=== PATIENT | female | born 1955 | race Caucasian/White ===

== ENCOUNTER 2018-12-01 12:39 | Inpatient (IN) | payer OTHER ==
[2018-12-01] MEDS ORDERED: SODIUM CHLORIDE 0.9% 1,000 ML IV STA ×2 (13:16→15:25)
[2018-12-01] MEDS ORDERED: methylPREDNISolone SOD SUCCI 125 MG/2 ML VIAL IV STA (13:16)
[2018-12-01] MEDS ORDERED: IPRATROPIUM-ALBUTEROL 3 ML NEB INHALATION STA ×2 (13:16→14:17)
[2018-12-01] MEDS ORDERED: ASPIRIN 81 MG PO STA (13:18)
[2018-12-01] MEDS ORDERED: MORPHINE SULFATE 4 MG/ML SYRINGE IV STA (13:19)
--- NOTE | 2018-12-01 13:48 | XR ---
EXAMINATION TYPE: XR chest 1V portable DATE OF EXAM: 12/01/2018 COMPARISON: 01/24/2018 HISTORY: Chest pain TECHNIQUE: Single frontal view of the chest is obtained. FINDINGS: There is chronic slight left hemidiaphragm elevation. Biapical lucency suggests a component of underlying COPD. There is no focal air space opacity, pleural effusion, or pneumothorax seen. Th e cardiac silhouette size is within normal limits. The osseous structures are intact. IMPRESSION: No acute cardiopulmonary process.
[2018-12-01 14:09] LABS: Basophils % (A) 0 %; Eosinophils % (A) 1 %; HCT 42.4 % (34.0-46.0); HGB 13.2 gm/dL (11.4-16.0); Lymphocytes # (A) 0.6 k/uL (1.0-4.8); Lymphocytes % (A) 9 %; MCHC 31.2 g/dL (31.0-37.0); MCV 89.8 fL (80.0-100.0); Mean Platelet Volume 6.9; Monocytes # (A) 0.5 k/uL (0-1.0); Monocytes % (A) 8 %; Neutrophils # (A) 4.9 k/uL (1.3-7.7); Neutrophils % (A) 80 %; Platelet Count 186 k/uL (150-450); RBC 4.72 m/uL (3.80-5.40); RDW 13.6 % (11.5-15.5); WBC 6.1 k/uL (3.8-10.6)
[2018-12-01 14:25] LABS: ALT 31 U/L (9-52); AST 18 U/L (14-36); Albumin 4.3 g/dL (3.5-5.0); Alkaline Phosphatase 98 U/L (38-126); Anion Gap 7 mmol/L; Blood Urea Nitrogen 8 mg/dL (7-17); Calcium 9.5 mg/dL (8.4-10.2); Carbon Dioxide 29 mmol/L (22-30); Chloride 102 mmol/L (98-107); Glucose 107 mg/dL (74-99); Potassium 4.7 mmol/L (3.5-5.1); Sodium 138 mmol/L (137-145); Total Bilirubin 0.4 mg/dL (0.2-1.3); Total Protein 7.5 g/dL (6.3-8.2)
[2018-12-01 14:43] LABS: D-Dimer 0.42 mg/L FEU (<0.60); INR 0.9 (<1.2); Partial Thromboplastin Time 22.6 sec (22.0-30.0); Prothrombin Time 9.7 sec (9.0-12.0)
--- NOTE | 2018-12-01 14:46 | ED ---
General Adult HPI - General Chief complaint: Shortness of Breath Stated complaint: RANDEE Time Seen by Provider: 12/01/18 13:12 Source: patient, family, RN notes reviewed, old records reviewed Mode of arrival: wheelchair Limitations: no limitations - History of Present Illness Initial comments: 63-year-old female patient past medical history of COPD, on home oxygen 2 L. Presents to ED with shortness of breath, generalized pain. Patient reports that she has generalized pain in her upper body, however does not have any localized pain. Pt also complains of a cough that is at times productive. These symptoms have been ongoing for approximately 3 days. Patient denies abdominal pain. Patient denies any other complaints. Systemic: Pt denies fatigue, myalgia, fever/chills, rash. Pt denies weakness, night sweats, weight loss. Neuro: Pt denies headache, visual disturbances, syncope or pre-syncope. HEENT: Pt denies ocular discharge or irritation, otalgia, rhinorrhea, pharyngitis or notable lymphadenopathy. Abdominal/GI: Pt denies abdominal pain, n/v/d. : Pt denies dysuria, burning w/ urination, frequency/urgency. Denies new onset urinary or bowel incontinence. MSK: Pt denies myalgia, loss of strength or function in extremities. Neuro: Pt denies new onset weakness, paresthesias. - Related Data Home Medications Medication Instructions Recorded Confirmed Albuterol Nebulized (Conc) 2.5 mg INHALATION RT-QID 12/01/18 12/01/18 [Ventolin Nebulized (Conc)] Metoprolol Tartrate [Lopressor] 25 mg PO DAILY 12/01/18 12/01/18 Nitroglycerin Sl Tabs [Nitrostat] 0.4 mg SL DIRECTED 12/01/18 12/01/18 predniSONE 5 mg PO BID 12/01/18 12/01/18 rOPINIRole HCL 0.5 mg PO DAILY 12/01/18 12/01/18 Allergies Allergy/AdvReac Type Severity Reaction Status Date / Time latex Allergy Rash/Hives Verified 12/01/18 19:48 Penicillins Allergy Unknown Verified 12/01/18 15:02 Review of Systems ROS Statement: Those systems with pertinent positive or pertinent negative responses have been documented in the HPI. ROS Other: All systems not noted in ROS Statement are negative. Past Medical History Past Medical History: COPD, Hyperlipidemia Additional Past Medical History / Comment(s): emphesema History of Any Multi-Drug Resistant Organisms: None Reported Past Surgical History: Section, Hysterectomy Past Psychological History: No Psychological Hx Reported Smoking Status: Current every day smoker Past Alcohol Use History: Rare Past Drug Use History: None Reported - Past Family History Mother Additional Family Medical History / Comment(s): thyroid issues Father Family Medical History: Cancer, COPD Additional Family Medical History / Comment(s): colon cancer General Exam - General Exam Comments Initial Comments: Constitutional: NAD, AOX3, Pt has pleasant affect. HEENT: NC/AT, trachea midline, neck supple, no lymphadenopathy. Posterior pharynx non erythematous, without exudates. External ears appear normal, without discharge. Mucous membranes moist. Eyes PERRLA, EOM intact. There is no scleral icterus. No pallor noted. Cardiopulmonary: RRR, no murmurs, rubs or gallops, no JVD noted. Mild wheezing noted in anterior lung bustillo, resolved after breathing treatment mild labored breathing, no use of acessory muscles. No peripheral edema. Abdominal exam: Abdomen soft and non-distended. Abdomen non-tender to palpation in all 4 quadrants. Bowel sounds active in LLQ. No hepatosplenomegaly. No ecchymosis Neuro: CN II-XII grossly intact. No nuchal rigidity. MSK: No posterior calf tenderness bilaterally, homans sign negative bilaterally. Posterior tibialis and radial pulse +2 bilaterally. Sensation intact in upper and lower extremities. Full active ROM in upper and lower extremities, 5/5 stregnth. Limitations: no limitations Course Vital Signs 12/01/18 12/01/18 12/01/18 12:44 13:30 13:38 Temperature 98.8 F Pulse Rate 138 H 138 H 133 H Respiratory 28 H 28 H Rate Blood Pressure 94/36 158/90 O2 Sat by Pulse 96 95 Oximetry 12/01/18 12/01/18 12/01/18 13:50 14:00 15:00 Temperature Pulse Rate 125 H 121 H 118 H Respiratory 24 24 Rate Blood Pressure 133/63 128/63 O2 Sat by Pulse 97 96 Oximetry 12/01/18 12/01/18 12/01/18 15:15 15:23 15:30 Temperature Pulse Rate 116 H 112 H 120 H Respiratory 24 Rate Blood Pressure 113/72 O2 Sat by Pulse 94 L Oximetry 12/01/18 12/01/18 17:00 18:05 Temperature 98.0 F 97.9 F Pulse Rate 116 H 115 H Respiratory 20 20 Rate Blood Pressure 112/66 126/80 O2 Sat by Pulse 93 L 94 L Oximetry Medical Decision Making - Medical Decision Making 63-year-old female patient past medical history of COPD, on home oxygen 2 L. Presents to ED with shortness of breath, generalized pain. Patient reports that she has generalized pain in her upper body, however does not have any localized pain. Pt also complains of a cough that is at times productive. These symptoms have been ongoing for approximately 3 days. Patient denies abdominal pain. Patient denies any other complaints. Patient vital signs with tachycardia. Physical exam displayed mild wheezing in anterior lung bustillo. Resolved after breathing treatment. Patient does have mild labored breathing. O2 investigations are non-impressive CBC, CMP. Correlation studies within normal limits. D-dimer negative. Troponin negative. BNP within normal limits. TSH within normal limits. CT pulmonary angiography display any pulmonary embolism. It did display a anterior mediastinal mass. Patient retained to be mildly tachycardic during stay in hospital. Pt to be admitted for COPD exacerbation. Case discussed and pt seen by Dr. Aguiar. - Lab Data Result diagrams: 12/01/18 13:25 12/01/18 13:25 Lab Results 12/01/18 12/01/18 12/01/18 Range/Units 13:25 13:25 13:25 WBC 6.1 (3.8-10.6) k/uL RBC 4.72 (3.80-5.40) m/uL Hgb 13.2 (11.4-16.0) gm/dL Hct 42.4 (34.0-46.0) % MCV 89.8 (80.0-100.0) fL MCH 28.0 (25.0-35.0) pg MCHC 31.2 (31.0-37.0) g/dL RDW 13.6 (11.5-15.5) % Plt Count 186 (150-450) k/uL Neutrophils % 80 % Lymphocytes % 9 % Monocytes % 8 % Eosinophils % 1 % Basophils % 0 % Neutrophils # 4.9 (1.3-7.7) k/uL Lymphocytes # 0.6 L (1.0-4.8) k/uL Monocytes # 0.5 (0-1.0) k/uL Eosinophils # 0.0 (0-0.7) k/uL Basophils # 0.0 (0-0.2) k/uL PT 9.7 (9.0-12.0) sec INR 0.9 (<1.2) APTT 22.6 (22.0-30.0) sec D-Dimer 0.42 (<0.60) mg/L FEU Sodium 138 (137-145) mmol/L Potassium 4.7 (3.5-5.1) mmol/L Chloride 102 (98-107) mmol/L Carbon Dioxide 29 (22-30) mmol/L Anion Gap 7 mmol/L BUN 8 (7-17) mg/dL Creatinine 0.61 (0.52-1.04) mg/dL Est GFR (CKD-EPI)AfAm >90 (>60 ml/min/1.73 sqM) Est GFR (CKD-EPI)NonAf >90 (>60 ml/min/1.73 sqM) Glucose 107 H (74-99) mg/dL Calcium 9.5 (8.4-10.2) mg/dL Total Bilirubin 0.4 (0.2-1.3) mg/dL AST 18 (14-36) U/L ALT 31 (9-52) U/L Alkaline Phosphatase 98 (38-126) U/L Creatine Kinase (30-135) U/L Troponin I (0.000-0.034) ng/mL NT-Pro-B Natriuret Pep pg/mL Total Protein 7.5 (6.3-8.2) g/dL Albumin 4.3 (3.5-5.0) g/dL TSH (0.465-4.680) mIU/L 12/01/18 12/01/18 12/01/18 Range/Units 13:25 13:25 13:25 WBC (3.8-10.6) k/uL RBC (3.80-5.40) m/uL Hgb (11.4-16.0) gm/dL Hct (34.0-46.0) % MCV (80.0-100.0) fL MCH (25.0-35.0) pg MCHC (31.0-37.0) g/dL RDW (11.5-15.5) % Plt Count (150-450) k/uL Neutrophils % % Lymphocytes % % Monocytes % % Eosinophils % % Basophils % % Neutrophils # (1.3-7.7) k/uL Lymphocytes # (1.0-4.8) k/uL Monocytes # (0-1.0) k/uL Eosinophils # (0-0.7) k/uL Basophils # (0-0.2) k/uL PT (9.0-12.0) sec INR (<1.2) APTT (22.0-30.0) sec D-Dimer (<0.60) mg/L FEU Sodium (137-145) mmol/L Potassium (3.5-5.1) mmol/L Chloride (98-107) mmol/L Carbon Dioxide (22-30) mmol/L Anion Gap mmol/L BUN (7-17) mg/dL Creatinine (0.52-1.04) mg/dL Est GFR (CKD-EPI)AfAm (>60 ml/min/1.73 sqM) Est GFR (CKD-EPI)NonAf (>60 ml/min/1.73 sqM) Glucose (74-99) mg/dL Calcium (8.4-10.2) mg/dL Total Bilirubin (0.2-1.3) mg/dL AST (14-36) U/L ALT (9-52) U/L Alkaline Phosphatase (38-126) U/L Creatine Kinase 47 (30-135) U/L Troponin I <0.012 (0.000-0.034) ng/mL NT-Pro-B Natriuret Pep 116 pg/mL Total Protein (6.3-8.2) g/dL Albumin (3.5-5.0) g/dL TSH 0.996 (0.465-4.680) mIU/L Disposition Clinical Impression: COPD (chronic obstructive pulmonary disease) Disposition: ADMITTED IP TO THIS HOSP Condition: Serious Is patient prescribed a controlled substance at d/c from ED?: No
[2018-12-01] MEDS ORDERED: LORazepam 2 MG/ML INJ IV STA (15:02)
--- NOTE | 2018-12-01 15:10 | CT ---
EXAMINATION TYPE: CT chest angio for PE DATE OF EXAM: 12/01/2018 COMPARISON: Chest x-ray same date, CT 05/25/2010 HISTORY: Left sided chest pain with cough and shortness of breath CT DLP: 242.1 mGycm Automated exposure control for dose reduction was used. CONTRAST: CT Chest for pulmonary embolism performed with with IV Contrast, patient injected with 100 mL of Isov ue 370. FINDINGS: LUNGS: The lungs are remarkable for emphysematous change, there is no concerning parenchymal mass or nodule identified. There is no pleural effusion or pneumothorax seen. The tracheobronchial tree is patent. MEDIASTINUM: There is satisfactory enhancement of the pulmonary artery and its branches, there is no CT evidence for pulmonary embolism. There is been interval development of an anterior mediastinal mas s measuring approximately 4 x 3.3 x 3.4 cm anterior to the innominate and left common carotid arterie s in the substernal location to the left of midline. Suspect some right hilar adenopathy. There is a small prevascular node present. No pericardial effusion is seen. AORTA: No additional significant abnormality is seen. OTHER: No additional significant abnormality is seen. IMPRESSION: Anterior mediastinal mass. Correlate for lymphoma, metastasis.
[2018-12-01] MEDS ORDERED: NALOXONE 0.4 MG/ML 1 ML VIAL IV PRN (16:54)
[2018-12-01] MEDS ORDERED: SODIUM CHLORIDE 0.9% 1,000 ML IV SCH (17:00)
[2018-12-01 19:47] VITALS: BMI 22.9
--- NOTE | 2018-12-01 21:34 | ED ---
Medical Decision Making - Lab Data Result diagrams: 12/01/18 13:25 12/01/18 13:25 Lab Results 12/01/18 12/01/18 12/01/18 Range/Units 13:25 13:25 13:25 WBC 6.1 (3.8-10.6) k/uL RBC 4.72 (3.80-5.40) m/uL Hgb 13.2 (11.4-16.0) gm/dL Hct 42.4 (34.0-46.0) % MCV 89.8 (80.0-100.0) fL MCH 28.0 (25.0-35.0) pg MCHC 31.2 (31.0-37.0) g/dL RDW 13.6 (11.5-15.5) % Plt Count 186 (150-450) k/uL Neutrophils % 80 % Lymphocytes % 9 % Monocytes % 8 % Eosinophils % 1 % Basophils % 0 % Neutrophils # 4.9 (1.3-7.7) k/uL Lymphocytes # 0.6 L (1.0-4.8) k/uL Monocytes # 0.5 (0-1.0) k/uL Eosinophils # 0.0 (0-0.7) k/uL Basophils # 0.0 (0-0.2) k/uL PT 9.7 (9.0-12.0) sec INR 0.9 (<1.2) APTT 22.6 (22.0-30.0) sec D-Dimer 0.42 (<0.60) mg/L FEU Sodium 138 (137-145) mmol/L Potassium 4.7 (3.5-5.1) mmol/L Chloride 102 (98-107) mmol/L Carbon Dioxide 29 (22-30) mmol/L Anion Gap 7 mmol/L BUN 8 (7-17) mg/dL Creatinine 0.61 (0.52-1.04) mg/dL Est GFR (CKD-EPI)AfAm >90 (>60 ml/min/1.73 sqM) Est GFR (CKD-EPI)NonAf >90 (>60 ml/min/1.73 sqM) Glucose 107 H (74-99) mg/dL Calcium 9.5 (8.4-10.2) mg/dL Total Bilirubin 0.4 (0.2-1.3) mg/dL AST 18 (14-36) U/L ALT 31 (9-52) U/L Alkaline Phosphatase 98 (38-126) U/L Creatine Kinase (30-135) U/L Troponin I (0.000-0.034) ng/mL NT-Pro-B Natriuret Pep pg/mL Total Protein 7.5 (6.3-8.2) g/dL Albumin 4.3 (3.5-5.0) g/dL TSH (0.465-4.680) mIU/L 12/01/18 12/01/18 12/01/18 Range/Units 13:25 13:25 13:25 WBC (3.8-10.6) k/uL RBC (3.80-5.40) m/uL Hgb (11.4-16.0) gm/dL Hct (34.0-46.0) % MCV (80.0-100.0) fL MCH (25.0-35.0) pg MCHC (31.0-37.0) g/dL RDW (11.5-15.5) % Plt Count (150-450) k/uL Neutrophils % % Lymphocytes % % Monocytes % % Eosinophils % % Basophils % % Neutrophils # (1.3-7.7) k/uL Lymphocytes # (1.0-4.8) k/uL Monocytes # (0-1.0) k/uL Eosinophils # (0-0.7) k/uL Basophils # (0-0.2) k/uL PT (9.0-12.0) sec INR (<1.2) APTT (22.0-30.0) sec D-Dimer (<0.60) mg/L FEU Sodium (137-145) mmol/L Potassium (3.5-5.1) mmol/L Chloride (98-107) mmol/L Carbon Dioxide (22-30) mmol/L Anion Gap mmol/L BUN (7-17) mg/dL Creatinine (0.52-1.04) mg/dL Est GFR (CKD-EPI)AfAm (>60 ml/min/1.73 sqM) Est GFR (CKD-EPI)NonAf (>60 ml/min/1.73 sqM) Glucose (74-99) mg/dL Calcium (8.4-10.2) mg/dL Total Bilirubin (0.2-1.3) mg/dL AST (14-36) U/L ALT (9-52) U/L Alkaline Phosphatase (38-126) U/L Creatine Kinase 47 (30-135) U/L Troponin I <0.012 (0.000-0.034) ng/mL NT-Pro-B Natriuret Pep 116 pg/mL Total Protein (6.3-8.2) g/dL Albumin (3.5-5.0) g/dL TSH 0.996 (0.465-4.680) mIU/L - EKG Data -: EKG Interpreted by Me (and dr baum) EKG Comments: ventricular rate 1:30, WI interval 124, QRS 78, QT/QTc 94/432. Sinus tachycardia, low voltage QRS. Borderline EKG.no concern for acute ischemia. Disposition Clinical Impression: COPD (chronic obstructive pulmonary disease) Disposition: ADMITTED IP TO THIS HOSP Condition: Serious Is patient prescribed a controlled substance at d/c from ED?: No
[2018-12-01] MEDS ORDERED: IPRATROPIUM-ALBUTEROL 3 ML NEB INHALATION PRN (22:00)
[2018-12-01] MEDS ORDERED: CALCIUM CARBONATE 500 MG CHEWABLE PO PRN (22:01)
[2018-12-01] MEDS ORDERED: NITROGLYCERIN SL TABS 0.4 MG TAB SUBLINGUAL PRN (22:02)
[2018-12-01] MEDS ORDERED: MELATONIN 5 MG TABLET PO PRN (22:03)
[2018-12-01] MEDS: PANTOPRAZOLE 40 MG/10 ML VIAL IVP SCH (23:03)
[2018-12-01] MEDS: guaiFENesin 600 MG TABLET.ER PO SCH (23:03)
[2018-12-01] MEDS: methylPREDNISolone SOD SUCCI 125 MG/2 ML VIAL IV SCH (23:03)
[2018-12-01] MEDS: METOPROLOL TARTRATE 25 MG TAB PO SCH (23:03)
[2018-12-01] MEDS: ACETAMINOPHEN TAB 325 MG TAB PO PRN (23:05)
[2018-12-02] MEDS: IPRATROPIUM-ALBUTEROL 3 ML NEB INHALATION PRN (03:49)
[2018-12-02] MEDS: guaiFENesin SYRUP 100MG/5ML 200 MG/10 ML CUP PO PRN ×2 (05:03→17:20)
[2018-12-02] MEDS: methylPREDNISolone SOD SUCCI 125 MG/2 ML VIAL IV SCH ×2 (05:03→13:59)
[2018-12-02] MEDS: MORPHINE SULFATE 4 MG/ML SYRINGE IV PRN ×3 (05:16→23:48)
[2018-12-02 06:59] LABS: Glucose,Whole Blood 140 mg/dL (75-99)
[2018-12-02] MEDS: IPRATROPIUM-ALBUTEROL 3 ML NEB INHALATION SCH ×4 (08:11→20:39)
[2018-12-02] MEDS: METOPROLOL TARTRATE 25 MG TAB PO SCH (08:41)
[2018-12-02] MEDS: guaiFENesin 600 MG TABLET.ER PO SCH ×2 (08:41→20:56)
[2018-12-02] MEDS: PANTOPRAZOLE 40 MG/10 ML VIAL IVP SCH (08:41)
[2018-12-02] MEDS: INSULIN ASPART (NovoLOG) 100 UNIT/ML VIAL SQ SCH ×4 (08:42→20:50)
--- NOTE | 2018-12-02 10:30 | P.CNPUL ---
History of Present Illness Consult date: 12/02/18 Requesting physician: Andre Cannon Reason for consult: abnormal CXR/CT Chief complaint: Bilateral shoulder pain, shortness of breath History of present illness: This is a very pleasant 63-year-old female patient who follows with Dr. Noguera as her primary care physician. She is a history of multiple sclerosis, osteoporosis, anxiety/depression, chronic and ongoing tobacco dependence, hyperlipidemia. She also has severe oxygen dependent, steroid dependent chronic obstructive pulmonary disease. She is on Symbicort, Spiriva, nebulized treatments in the outpatient setting. She follows with Dr. Mathew in our office for the same. She was last seen in April 2018. She had presented here to the emergency room with worsening shortness of breath, bilateral shoulder discomfort. She has had approximately 30 pound weight loss in the past 6 months or so. She has been trying to quit smoking. Chest x-ray shows no acute cardiopulmonary process. CT angiogram did reveal evidence of anterior mediastinal mass. The mass is measuring 4 x 3.3 x 3.4 located all new anteriorly to the innominate and left common carotid arteries in the substernal location to the left midline. Suspect some right hilar adenopathy as well. Within the differential is lung cancer, thymus cancer, less likely thyroid cancer or lymphoma. She is seen today in consultation on the oncology unit. She is awake and alert in no acute distress. She's currently afebrile. Maintaining O2 saturations in the 90s on 3 L/m per nasal cannula. She denies any hemoptysis. She's been hemodynamically stable. White count 6.1. Hemoglobin 13.2. Creatinine 0.61. TSH 0.996. She is currently on DuoNeb inhalations, IV Solu-Medrol. Her pain is being controlled with morphine. Review of Systems Constitutional: Reports chronic pain, Reports fatigue, Reports weakness, Reports weight loss Eyes: denies blurred vision, denies decreased vision Ears: deny: decreased hearing Ears, nose, mouth and throat: Denies headache, Denies sore throat Cardiovascular: Reports decreased exercise tolerance, Reports dyspnea on exertion, Reports shortness of breath Respiratory: Reports cough, Reports dyspnea, Reports home oxygen Gastrointestinal: Denies abdominal pain, Denies diarrhea, Denies nausea, Denies vomiting Genitourinary: Denies dysuria, Denies hematuria Musculoskeletal: Reports limitation of motion, Reports neck pain Musculoskeletal: bilateral: shoulder pain Integumentary: Denies pruritus, Denies rash Neurological: Reports weakness Psychiatric: Reports anxiety, Reports depression Endocrine: Denies fatigue, Denies weight change Hematologic/Lymphatic: Reports as per HPI Allergic/Immunologic: Reports as per HPI Past Medical History Past Medical History: COPD, Hyperlipidemia, Osteoarthritis (OA) Additional Past Medical History / Comment(s): Severe oxygen dependent, steroid dependent chronic obstructive pulmonary disease. History of Any Multi-Drug Resistant Organisms: None Reported Past Surgical History: Section, Hysterectomy Past Anesthesia/Blood Transfusion Reactions: No Reported Reaction Past Psychological History: No Psychological Hx Reported Smoking Status: Current every day smoker Past Alcohol Use History: Rare Past Drug Use History: None Reported - Past Family History Mother Additional Family Medical History / Comment(s): thyroid issues Father Family Medical History: Cancer, COPD Additional Family Medical History / Comment(s): colon cancer Medications and Allergies Home Medications Medication Instructions Recorded Confirmed Type Albuterol Nebulized (Conc) 2.5 mg INHALATION RT-QID 12/01/18 12/01/18 History [Ventolin Nebulized (Conc)] Metoprolol Tartrate [Lopressor] 25 mg PO DAILY 12/01/18 12/01/18 History Nitroglycerin Sl Tabs [Nitrostat] 0.4 mg SL DIRECTED 12/01/18 12/01/18 History predniSONE 5 mg PO BID 12/01/18 12/01/18 History rOPINIRole HCL 0.5 mg PO DAILY 12/01/18 12/01/18 History Allergies Allergy/AdvReac Type Severity Reaction Status Date / Time latex Allergy Rash/Hives Verified 12/01/18 19:48 Penicillins Allergy Unknown Verified 12/01/18 15:02 Physical Exam Vitals: Vital Signs Temp Pulse Pulse Resp BP BP Pulse Ox 12/02/18 08:23 104 H 12/02/18 08:13 98 93 L 12/02/18 05:45 97.6 F 97 20 120/78 93 L 12/02/18 04:04 112 H 12/02/18 03:49 108 H 12/01/18 21:00 97.9 F 114 H 20 110/63 95 12/01/18 18:05 97.9 F 115 H 20 126/80 94 L 12/01/18 17:00 98.0 F 116 H 20 112/66 93 L 12/01/18 15:30 120 H 24 113/72 94 L 12/01/18 15:23 112 H 12/01/18 15:15 116 H 12/01/18 15:00 118 H 24 128/63 96 12/01/18 14:00 121 H 24 133/63 97 12/01/18 13:50 125 H 12/01/18 13:38 133 H 12/01/18 13:30 138 H 28 H 158/90 95 12/01/18 12:44 98.8 F 138 H 28 H 94/36 96 Intake and Output 12/01/18 12/02/18 12/02/18 22:59 06:59 14:59 Intake Total 1040 Balance 1040 Intake: Oral 1040 Other: Voiding Method Toilet # Voids 1 1 Weight 62.5 kg - EENT Eyes: EOMI, PERRLA ENT: hearing grossly normal Ears: bilateral: normal - Neck Neck: no lymphadenopathy Carotids: bilateral: upstroke normal Thyroid: bilateral: normal size - Respiratory Respiratory: bilateral: diminished, wheezing, prolonged expiration - Cardiovascular Rhythm: regular Heart sounds: normal: S1, S2 - Gastrointestinal General gastrointestinal: normal bowel sounds - Integumentary Integumentary: normal turgor - Neurologic Neurologic: CNII-XII intact - Musculoskeletal Musculoskeletal: generalized weakness - Psychiatric Psychiatric: A&O x's 3, appropriate affect, intact judgment & insight Results - Laboratory Findings CBC and BMP: 12/01/18 13:25 12/01/18 13:25 PT/INR, D-dimer PT 9.7 sec (9.0-12.0) 12/01/18 13:25 INR 0.9 (<1.2) 12/01/18 13:25 D-Dimer 0.42 mg/L FEU (<0.60) 12/01/18 13:25 Abnormal lab findings: Abnormal Labs 12/01/18 12/01/18 12/02/18 13:25 13:25 06:57 Lymphocytes # 0.6 L Glucose 107 H POC Glucose (mg/dL) 140 H - Diagnostic Findings Chest x-ray: image reviewed CT scan - chest: image reviewed Assessment and Plan Assessment: Impression: #1 Acute exacerbation of severe oxygen dependent, steroid dependent chronic obstructive pulmonary disease. #2 Chronic and ongoing tobacco dependence. #3 Mediastinal mass measuring 4 x 3.3 x 3.4 cm anterior to the innominate and left common carotid arteries and the substernal location to the left of midline. Suspect some right hilar adenopathy as well. #4 Anxiety/depression. #5 Osteoporosis. #6 Multiple sclerosis. #7 Hyperlipidemia. Plan: The patient was seen and evaluated by Dr. Emanuel. Chest x-ray, CAT scans and labs all reviewed. She would benefit from a fine-needle aspirate per interventional radiology of the mediastinal mass. Suspect lung cancer or thymus cancer. Less likely thyroid cancer or lymphoma. She is agreeable to the plan. She is educated regarding the importance of complete smoking cessation. In the interim we will treat her COPD with IV Solu-Medrol, DuoNeb inhalations, Pulmicort and Perforomist inhalations. We will continue to follow make further recommendations based on her clinical status. I, the cosigning physician, performed a history & physical examination of the patient. Lungs sounds with bilateral end expiratory wheeze, diminished. Maintaining good O2 saturations in the 90s on 3 L/m per nasal cannula. I discussed the assessment and plan of care with my nurse practitioner, Torrie Duvall. I attest to the above consultation as dictated by her. Time with Patient: Greater than 30
--- NOTE | 2018-12-02 10:56 | P.GSCN ---
History of Present Illness Consult date: 12/02/18 Reason for Consult: mediastinal mass, surgery recommendations Requesting physician: Waylon Aguiar History of present illness: This is a 63-year-old female patient who follows with Drs. Noguera and Priyanka on an outpatient basis. She has a previous medical history of COPD with home oxygen at 2 L nasal cannula and chronic prednisone, current tobacco dependence, down to 6 cigarettes a day, was as high as 2 packs per day over the past 40 years, recently 30 pound weight loss over the last 6 months, multiple sclerosis, hyperlipidemia, and significant family history for cancer. She presented to [facility] with a 3 day history of shortness of breath, generalized upper body pain, and productive cough. States her sputum was sometimes green, sometimes clear. Upon further questioning she does state she had a fever of 101F per her daughter's temporal scanner. She denies any other symptomatology. Chest x-ray was completed in the emergency room demonstrating no acute process, COPD. 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 She was admitted for evaluation and treatment. She has remained afebrile with no leukocytosis. She was placed on bronchodilators and IV steroids. Dr. Salcedo from cardiothoracic surgery was consulted regarding surgical recommendations for the mediastinal mass. Review of Systems Review of systems was completed and was negative except as noted. - Respiratory Reports congestion, Reports cough with sputum, Reports dyspnea, Reports home oxygen, Reports pain Past Medical History Past Medical History: COPD, Hyperlipidemia Additional Past Medical History / Comment(s): emphesema on chronic prednisone History of Any Multi-Drug Resistant Organisms: None Reported Past Surgical History: Section, Hysterectomy, Tonsillectomy Past Anesthesia/Blood Transfusion Reactions: No Reported Reaction Past Psychological History: No Psychological Hx Reported Additional Psychological History / Comment(s): Anxiety over needles Smoking Status: Current every day smoker Past Alcohol Use History: Rare Past Drug Use History: None Reported - Past Family History Mother Additional Family Medical History / Comment(s): thyroid issues Father Family Medical History: Cancer, COPD Additional Family Medical History / Comment(s): colon cancer Daughter(s) Family Medical History: Cancer, Congestive Heart Failure (CHF) Medications and Allergies Home Medications Medication Instructions Recorded Confirmed Type Albuterol Nebulized (Conc) 2.5 mg INHALATION RT-QID 12/01/18 12/01/18 History [Ventolin Nebulized (Conc)] Metoprolol Tartrate [Lopressor] 25 mg PO DAILY 12/01/18 12/01/18 History Nitroglycerin Sl Tabs [Nitrostat] 0.4 mg SL DIRECTED 12/01/18 12/01/18 History predniSONE 5 mg PO BID 12/01/18 12/01/18 History rOPINIRole HCL 0.5 mg PO DAILY 12/01/18 12/01/18 History Allergies Allergy/AdvReac Type Severity Reaction Status Date / Time latex Allergy Rash/Hives Verified 12/01/18 19:48 Penicillins Allergy Unknown Verified 12/01/18 15:02 Surgical - Exam Vital Signs Temp Pulse Resp BP Pulse Ox 98.8 F 138 H 28 H 94/36 96 12/01/18 12:44 12/01/18 12:44 12/01/18 12:44 12/01/18 12:44 12/01/18 12:44 - General well developed, no distress, chronically ill - Eyes PERRL, normal ocular movement - ENT no hearing loss, poor fci - Neck no masses, no bruits, trachea midline - Respiratory Lungs sounds diminished with expiratory wheezes present. Respirations even, nonlabored. Currently on 3 L nasal cannula with oxygen saturation 93%. Strong, productive cough. - Cardiovascular S1, S2 present. Tachycardic but regular rate and rhythm, sinus tach on telemetry. Palpable peripheral pulses bilaterally. No edema present. No calf pain or tenderness noted. - Abdomen Abdomen: soft, non tender, bowel sounds - Genitourinary Deferred - Rectum Deferred - Integumentary no rash, no growths - Neurologic normal coordination, normal sensation - Musculoskeletal normal gait, normal posture - Psychiatric oriented to time, oriented to person, oriented to place, speech is normal, memory intact Results - Labs 12/01/18 13:25 12/01/18 13:25 Abnormal Lab Results - Last 24 Hours (Table) 12/01/18 12/01/18 12/02/18 Range/Units 13:25 13:25 06:57 Lymphocytes # 0.6 L (1.0-4.8) k/uL Glucose 107 H (74-99) mg/dL POC Glucose (mg/dL) 140 H (75-99) mg/dL Diabetes panel 12/01/18 Range/Units 13:25 Sodium 138 (137-145) mmol/L Potassium 4.7 (3.5-5.1) mmol/L Chloride 102 (98-107) mmol/L Carbon Dioxide 29 (22-30) mmol/L BUN 8 (7-17) mg/dL Creatinine 0.61 (0.52-1.04) mg/dL Glucose 107 H (74-99) mg/dL Calcium 9.5 (8.4-10.2) mg/dL AST 18 (14-36) U/L ALT 31 (9-52) U/L Alkaline Phosphatase 98 (38-126) U/L Total Protein 7.5 (6.3-8.2) g/dL Albumin 4.3 (3.5-5.0) g/dL Thyroid panel 12/01/18 Range/Units 13:25 TSH 0.996 (0.465-4.680) mIU/L Calcium panel 12/01/18 Range/Units 13:25 Calcium 9.5 (8.4-10.2) mg/dL Albumin 4.3 (3.5-5.0) g/dL Pituitary panel 12/01/18 12/01/18 Range/Units 13:25 13:25 Sodium 138 (137-145) mmol/L Potassium 4.7 (3.5-5.1) mmol/L Chloride 102 (98-107) mmol/L Carbon Dioxide 29 (22-30) mmol/L BUN 8 (7-17) mg/dL Creatinine 0.61 (0.52-1.04) mg/dL Glucose 107 H (74-99) mg/dL Calcium 9.5 (8.4-10.2) mg/dL TSH 0.996 (0.465-4.680) mIU/L Adrenal panel 12/01/18 Range/Units 13:25 Sodium 138 (137-145) mmol/L Potassium 4.7 (3.5-5.1) mmol/L Chloride 102 (98-107) mmol/L Carbon Dioxide 29 (22-30) mmol/L BUN 8 (7-17) mg/dL Creatinine 0.61 (0.52-1.04) mg/dL Glucose 107 H (74-99) mg/dL Calcium 9.5 (8.4-10.2) mg/dL Total Bilirubin 0.4 (0.2-1.3) mg/dL AST 18 (14-36) U/L ALT 31 (9-52) U/L Alkaline Phosphatase 98 (38-126) U/L Total Protein 7.5 (6.3-8.2) g/dL Albumin 4.3 (3.5-5.0) g/dL - Imaging Chest x-ray: report reviewed, image reviewed CT scan - chest: report reviewed, image reviewed EKG: image reviewed Assessment and Plan Assessment: 1. 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 COPD on home oxygen therapy, chronic prednisone, and inhaled bronchodilators 3. Current smoker 4. Significant family history of cancer 5. 30 pound weight loss over the previous 6 months 6. Multiple sclerosis 7. Anxiety Plan: The patient was seen and examined at the bedside. Chart/diagnostics were reviewed including CT review with Dr. Salcedo. At this time our recommendation is for interventional radiology to perform a CT-guided needle biopsy of the mass for diagnosis, likely cancer considering smoking history and significant family history. Continue steroids, bronchodilators per pulmonology. Encourage complete smoking cessation. Pain control per primary care service. More recommendations to follow. Thank you for this consult. We will continue to follow. Time with Patient: Greater than 30
[2018-12-02 11:08] LABS: Glucose,Whole Blood 158 mg/dL (75-99)
--- NOTE | 2018-12-02 13:36 | P.HPIM ---
History of Present Illness 61-year-old female came in with complaints of shortness of breath continued to smoke. Does use 2 L of onset at home. Patient is found to be in COPD exacerbation presently improved patient is close to her baseline regarding COPD. Incidentally patient is found to have mass in the mediastinum on the CAT scan that was done yesterday which did not show any pulmonary embolism. Patient did have a 30 pound weight loss in last 6 months. The concern is very high for lung cancer or thymoma or lymphoma. Patient doesn't have any pneumonia on the chest x-ray patient is comparing of cough without any significant sputum production. Cardiac thoracic surgery was consulted in the recommending the interventional radiology CT-guided biopsy. I had at length discussion with the interventional radiologist today. Will monitor her today for COPD exacerbation patient is high risk for pneumothorax considering significant emphysema and the location of the mass. Patient will be reevaluated tomorrow by interventional radiology, may end up having a biopsy of this mass tomorrow if not patient will be discharged and will be brought back as an outpatient procedure. At that time if patient and this up having pneumothorax then patient need to be admitted at that time. Patient denied any fever chills. Review of Systems REVIEW OF SYSTEMS: CONSTITUTIONAL: No fever, no malaise, no fatigue. HEENT: No recent visual problems or hearing problems. Denied any sore throat. CARDIOVASCULAR: No chest pain, orthopnea, PND, no palpitations, no syncope. PULMONARY: As mentioned in HPI GASTROINTESTINAL: No diarrhea, no nausea, no vomiting, no abdominal pain. NEUROLOGICAL: No headaches, no weakness, no numbness. HEMATOLOGICAL: Denies any bleeding or petechiae. GENITOURINARY: Denies any burning micturition, frequency, or urgency. MUSCULOSKELETAL/RHEUMATOLOGICAL: Denies any joint pain, swelling, or any muscle pain. ENDOCRINE: Denies any polyuria or polydipsia. The rest of the 14-point review of systems is negative. Past Medical History Past Medical History: COPD, Hyperlipidemia Additional Past Medical History / Comment(s): emphesema on chronic prednisone History of Any Multi-Drug Resistant Organisms: None Reported Past Surgical History: Section, Hysterectomy, Tonsillectomy Past Anesthesia/Blood Transfusion Reactions: No Reported Reaction Past Psychological History: No Psychological Hx Reported Additional Psychological History / Comment(s): Anxiety over needles Smoking Status: Current every day smoker Past Alcohol Use History: Rare Past Drug Use History: None Reported - Past Family History Mother Additional Family Medical History / Comment(s): thyroid issues Father Family Medical History: Cancer, COPD Additional Family Medical History / Comment(s): colon cancer Daughter(s) Family Medical History: Cancer, Congestive Heart Failure (CHF) Medications and Allergies Home Medications Medication Instructions Recorded Confirmed Type Albuterol Nebulized (Conc) 2.5 mg INHALATION RT-QID 12/01/18 12/01/18 History [Ventolin Nebulized (Conc)] Metoprolol Tartrate [Lopressor] 25 mg PO DAILY 12/01/18 12/01/18 History Nitroglycerin Sl Tabs [Nitrostat] 0.4 mg SL DIRECTED 12/01/18 12/01/18 History predniSONE 5 mg PO BID 12/01/18 12/01/18 History rOPINIRole HCL 0.5 mg PO DAILY 12/01/18 12/01/18 History Allergies Allergy/AdvReac Type Severity Reaction Status Date / Time latex Allergy Rash/Hives Verified 12/01/18 19:48 Penicillins Allergy Unknown Verified 12/01/18 15:02 Physical Exam Vitals: Vital Signs Temp Pulse Pulse Resp BP BP Pulse Ox 12/02/18 13:15 97 F L 106 H 20 159/72 95 12/02/18 08:23 104 H 12/02/18 08:13 98 93 L 12/02/18 08:00 97 20 12/02/18 05:45 97.6 F 97 20 120/78 93 L 12/02/18 04:04 112 H 12/02/18 03:49 108 H 12/01/18 21:00 97.9 F 114 H 20 110/63 95 12/01/18 18:05 97.9 F 115 H 20 126/80 94 L 12/01/18 17:00 98.0 F 116 H 20 112/66 93 L 12/01/18 15:30 120 H 24 113/72 94 L 12/01/18 15:23 112 H 12/01/18 15:15 116 H 12/01/18 15:00 118 H 24 128/63 96 12/01/18 14:00 121 H 24 133/63 97 12/01/18 13:50 125 H 12/01/18 13:38 133 H Intake and Output 12/01/18 12/02/18 12/02/18 22:59 06:59 14:59 Intake Total 1040 Balance 1040 Intake: Oral 1040 Other: Voiding Method Toilet Toilet # Voids 1 1 1 Weight 62.5 kg 62.5 kg PHYSICAL EXAMINATION: GENERAL: The patient is alert and oriented x3, not in any acute distress. Well developed, well nourished. HEENT: Pupils are round and equally reacting to light. EOMI. No scleral icterus. No conjunctival pallor. Normocephalic, atraumatic. No pharyngeal erythema. No thyromegaly. CARDIOVASCULAR: S1 and S2 present. No murmurs, rubs, or gallops. PULMONARY: Fairly good air entry with minimal expiratory wheezing on exam ABDOMEN: Soft, nontender, nondistended, normoactive bowel sounds. No palpable organomegaly. MUSCULOSKELETAL: No joint swelling or deformity. EXTREMITIES: No cyanosis, clubbing, or pedal edema. NEUROLOGICAL: Gross neurological examination did not reveal any focal deficits. SKIN: No rashes. Results CBC & Chem 7: 12/01/18 13:25 12/01/18 13:25 Labs: Abnormal Lab Results - Last 24 Hours (Table) 12/01/18 12/01/18 12/02/18 Range/Units 13:25 13:25 06:57 Lymphocytes # 0.6 L (1.0-4.8) k/uL Glucose 107 H (74-99) mg/dL POC Glucose (mg/dL) 140 H (75-99) mg/dL 12/02/18 Range/Units 11:07 Lymphocytes # (1.0-4.8) k/uL Glucose (74-99) mg/dL POC Glucose (mg/dL) 158 H (75-99) mg/dL Thrombosis Risk Factor Assmnt - Choose All That Apply Any of the Below Risk Factors Present?: Yes Each Factor Represents 1 point: Abnormal pulmonary function (COPD), Serious lung disease incl. pneumonia (< 1month) Other Risk Factors: Yes Each Risk Factor Represents 2 Points: Age 61-74 years Other congenital or acquired thrombophilia - If yes, enter type in comment: No Thrombosis Risk Factor Assessment Total Risk Factor Score: 4 Thrombosis Risk Factor Assessment Level: Moderate Risk Assessment and Plan Plan: -Acute on chronic hypercapnic respiratory failure secondary to COPD exacerbation patient is on IV steroids which I do not believe is necessary patient will be switched to oral steroids. -Mediastinal mass aspirin will be held as recommended by interventional radiology. Possibility of biopsy tomorrow if not patient will be discharged and brought back for the biopsy. -Continue nicotine use: Counseling was provided -History of multiple sclerosis no new weakness at this time -Osteoporosis probably from steroids -Hyperlipidemia Possibility of discharge tomorrow
[2018-12-02 17:31] LABS: Glucose,Whole Blood 124 mg/dL (75-99)
[2018-12-02 20:11] LABS: Glucose,Whole Blood 117 mg/dL (75-99)
[2018-12-02] MEDS: guaiFENesin-Coden 100-10MG/5ML 10 ML CUP PO PRN (20:56)
[2018-12-02] MEDS: ACETAMINOPHEN TAB 325 MG TAB PO PRN (20:56)
[2018-12-03] MEDS: IPRATROPIUM-ALBUTEROL 3 ML NEB INHALATION PRN (06:21)
[2018-12-03 06:56] LABS: Glucose,Whole Blood 93 mg/dL (75-99)
[2018-12-03] MEDS: IPRATROPIUM-ALBUTEROL 3 ML NEB INHALATION SCH ×4 (07:41→21:16)
[2018-12-03] MEDS: INSULIN ASPART (NovoLOG) 100 UNIT/ML VIAL SQ SCH ×4 (08:05→21:21)
[2018-12-03] MEDS: PANTOPRAZOLE 40 MG TABLET PO SCH (09:20)
[2018-12-03] MEDS: predniSONE 20 MG TAB PO SCH (09:20)
[2018-12-03] MEDS: guaiFENesin 600 MG TABLET.ER PO SCH ×2 (09:20→21:21)
[2018-12-03] MEDS: METOPROLOL TARTRATE 25 MG TAB PO SCH (09:20)
[2018-12-03] MEDS: MORPHINE SULFATE 4 MG/ML SYRINGE IV PRN ×2 (10:03→18:29)
[2018-12-03 11:05] LABS: Glucose,Whole Blood 103 mg/dL (75-99)
[2018-12-03] MEDS: DOXYCYCLINE 100 MG CAP PO SCH ×2 (12:35→21:21)
--- NOTE | 2018-12-03 12:35 | P.PN ---
Subjective Progress Note Date: 12/03/18 Principal diagnosis: Acute exacerbation of COPD This is a very pleasant 63-year-old female patient who follows with Dr. Noguera as her primary care physician. She is a history of multiple sclerosis, osteoporosis, anxiety/depression, chronic and ongoing tobacco dependence, hyperlipidemia. She also has severe oxygen dependent, steroid dependent chronic obstructive pulmonary disease. She is on Symbicort, Spiriva, nebulized treatments in the outpatient setting. She follows with Dr. Mathew in our office for the same. She was last seen in April 2018. She had presented here to the emergency room with worsening shortness of breath, bilateral shoulder discomfort. She has had approximately 30 pound weight loss in the past 6 months or so. She has been trying to quit smoking. Chest x-ray shows no acute cardiopulmonary process. CT angiogram did reveal evidence of anterior mediastinal mass. The mass is measuring 4 x 3.3 x 3.4 located all new anteriorly to the innominate and left common carotid arteries in the substernal location to the left midline. Suspect some right hilar adenopathy as well. Within the differential is lung cancer, thymus cancer, less likely thyroid cancer or lymphoma. She is seen today in consultation on the oncology unit. She is awake and alert in no acute distress. She's currently afebrile. Maintaining O2 saturations in the 90s on 3 L/m per nasal cannula. She denies any hemoptysis. She's been hemodynamically stable. White count 6.1. Hemoglobin 13.2. Creatinine 0.61. TSH 0.996. She is currently on DuoNeb inhalations, IV Solu-Medrol. Her pain is being controlled with morphine. Patient was reevaluated today on , and basically she is about the same , continues to have intermittent episodes of cough wheezing shortness of breath , continues to have bilateral shoulder discomfort. Patient is to be scheduled for CT-guided biopsy of anterior mediastinal mass, hopefully this could be done tomorrow. Apparently she was on aspirin, and it is presently on hold. Patient remains on bronchodilators as ordered on admission. And she remains on oxygen. Objective - Vital Signs Vital signs: Vital Signs Temp 97.4 F L 12/03/18 05:00 Pulse 100 12/03/18 11:17 Resp 20 12/03/18 06:30 BP 143/84 12/03/18 05:00 Pulse Ox 93 L 12/03/18 07:42 Intake & Output 12/02/18 12/03/18 12/03/18 18:59 06:59 18:59 Intake Total 360 1000 Balance 360 1000 Weight 62.5 kg Intake: Oral 360 1000 Other: Voiding Method Toilet Toilet Toilet # Voids 3 1 - Exam Physical Exam: Revealed a 64-year-old female in no distress, looks frail, chronically ill, on oxygen at 2 L nasal cannula. Head: Atraumatic, normocephalic. HEENT:[Neck is supple.] [No neck masses.] [No thyromegaly.] [No JVD.] Chest: Diminished breath sound bilaterally, rhonchi and wheezes noted bilaterally more so on forced expiratory maneuver. Cardiac Exam: [Normal S1 and S2, no S3 gallop, no murmur.] Abdomen: [Soft, nontender, no megaly, no rebound, no guarding, normal bowel sounds.] Extremities: [No clubbing, no edema, no cyanosis.] Neurological Exam: [No focal neurologic deficit.] Psychiatric: Depressed mood, blunt affect, normal mental status examination. Skin: No rashes. - Labs CBC & Chem 7: 12/01/18 13:25 12/01/18 13:25 Labs: Abnormal Lab Results - Last 24 Hours (Table) 12/02/18 12/02/18 12/03/18 Range/Units 17:29 20:10 11:02 POC Glucose (mg/dL) 124 H 117 H 103 H (75-99) mg/dL Microbiology - Last 24 Hours (Table) 12/02/18 20:25 Gram Stain - Preliminary Sputum Sputum Culture - Preliminary 12/01/18 13:25 Blood Culture - Preliminary Blood No Growth after 24 hours Assessment and Plan Assessment: Impression: 1 acute exacerbation of COPD, patient is known to have severe COPD with chronic hypoxic respiratory failure. 2 mediastinal mass, strongly suspicious for malignancy, the location of the mass would be more suspicious of lymphoma. 3 ongoing tobacco dependence syndrome. 4 multiple comorbidities including weight loss most likely secondary to underlying malignancy, anxiety, osteoporosis, multiple sclerosis and hyperlipidemia. Recommendation: Had a long discussion with the patient and her many family members at bedside, explained to them the procedure that we are recommending which is a CT-guided needle biopsy of her anterior mediastinal mass, and hopefully this could be done tomorrow. In the meantime we will continue to treat for her COPD symptoms. She will remain on bronchodilators, steroids, and we'll continue to follow closely. Prognosis is clearly poor and guarded. Time with Patient: Less than 30
[2018-12-03 13:00] LABS: Hemoglobin A1C 5.3 % (4.0-6.0)
--- NOTE | 2018-12-03 15:26 | P.PN ---
Subjective 63-year-old female was admitted for COPD exacerbation found to have mediastinal mass most probably will undergo CT-guided biopsy tomorrow. Pulmonology and carotid thoracic surgery evaluated the patient patient has significant emphysema very high risk for postoperative pneumothorax same thing was discussed with the patient. Patient evidently had an episode of shortness of breath was wheezing earlier today although when I examined patient is fairly stable no significant wheezing on exam. Constitutional: Denied any fatigue denied any fever. Cardio vascular: denied any chest pain, palpitations Gastrointestinal denied any nausea vomiting Pulmonary: Shortness of breath as mentioned above Neurologic denied any new focal deficits All inpatient medications were reviewed and appropriate changes in these medications as dictated in the interval history and assessment and plan. Objective - Vital Signs Vital signs: Vital Signs Temp 99.0 F 12/03/18 12:25 Pulse 105 H 12/03/18 12:25 Resp 16 12/03/18 12:25 BP 122/73 12/03/18 12:25 Pulse Ox 95 12/03/18 12:25 Intake & Output 12/02/18 12/03/18 12/03/18 18:59 06:59 18:59 Intake Total 360 1000 Balance 360 1000 Weight 62.5 kg Intake: Oral 360 1000 Other: Voiding Method Toilet Toilet Toilet # Voids 3 1 4 - Exam PHYSICAL EXAMINATION: GENERAL: The patient is alert and oriented x3, not in any acute distress. Well developed, well nourished. HEENT: Pupils are round and equally reacting to light. EOMI. No scleral icterus. No conjunctival pallor. Normocephalic, atraumatic. No pharyngeal erythema. No thyromegaly. CARDIOVASCULAR: S1 and S2 present. No murmurs, rubs, or gallops. PULMONARY: Fairly good air entry with minimal expiratory wheezing on exam ABDOMEN: Soft, nontender, nondistended, normoactive bowel sounds. No palpable organomegaly. MUSCULOSKELETAL: No joint swelling or deformity. EXTREMITIES: No cyanosis, clubbing, or pedal edema. NEUROLOGICAL: Gross neurological examination did not reveal any focal deficits. SKIN: No rashes. - Labs CBC & Chem 7: 12/01/18 13:25 12/01/18 13:25 Labs: Abnormal Lab Results - Last 24 Hours (Table) 12/02/18 12/02/18 12/03/18 Range/Units 17:29 20:10 11:02 POC Glucose (mg/dL) 124 H 117 H 103 H (75-99) mg/dL Microbiology - Last 24 Hours (Table) 12/02/18 20:25 Gram Stain - Preliminary Sputum Sputum Culture - Preliminary 12/01/18 13:25 Blood Culture - Preliminary Blood No Growth after 24 hours Assessment and Plan Plan: -Acute on chronic hypercapnic respiratory failure secondary to COPD exacerbation she'll be continued on steroids inhalational treatment. -Mediastinal mass aspirin will be held as recommended by interventional radiology. Possibility of biopsy tomorrow if not patient will be discharged and brought back for the biopsy. -Continue nicotine use: Counseling was provided -History of multiple sclerosis no new weakness at this time -Osteoporosis probably from steroids -Hyperlipidemia Possibility of discharge tomorrow
[2018-12-03 17:19] LABS: Glucose,Whole Blood 113 mg/dL (75-99)
[2018-12-03 20:39] LABS: Glucose,Whole Blood 95 mg/dL (75-99)
[2018-12-03] MEDS: guaiFENesin-Coden 100-10MG/5ML 10 ML CUP PO PRN (22:56)
[2018-12-04] MEDS ORDERED: MORPHINE SULFATE 4 MG/ML SYRINGE ONE (03:07)
[2018-12-04 06:14] VITALS: RESP 18
[2018-12-04 06:56] LABS: Glucose,Whole Blood 83 mg/dL (75-99)
[2018-12-04] MEDS: INSULIN ASPART (NovoLOG) 100 UNIT/ML VIAL SQ SCH ×2 (07:14→12:27)
[2018-12-04] MEDS: IPRATROPIUM-ALBUTEROL 3 ML NEB INHALATION SCH ×3 (07:59→16:40)
[2018-12-04] MEDS: METOPROLOL TARTRATE 25 MG TAB PO SCH (08:18)
[2018-12-04] MEDS: predniSONE 20 MG TAB PO SCH (08:18)
[2018-12-04] MEDS: PANTOPRAZOLE 40 MG TABLET PO SCH (08:18)
[2018-12-04] MEDS: guaiFENesin 600 MG TABLET.ER PO SCH (08:18)
[2018-12-04] MEDS: DOXYCYCLINE 100 MG CAP PO SCH (08:19)
[2018-12-04] MEDS: MORPHINE SULFATE 4 MG/ML SYRINGE IV PRN (11:07)
--- NOTE | 2018-12-04 11:54 | P.PN ---
Subjective Progress Note Date: 12/04/18 Principal diagnosis: Acute exacerbation of chronic obstructive pulmonary disease. Anterior mediastinal mass. This is a very pleasant 63-year-old female patient who follows with Dr. Noguera as her primary care physician. She is a history of multiple sclerosis, osteoporosis, anxiety/depression, chronic and ongoing tobacco dependence, hyperlipidemia. She also has severe oxygen dependent, steroid dependent chronic obstructive pulmonary disease. She is on Symbicort, Spiriva, nebulized treatments in the outpatient setting. She follows with Dr. Mathew in our office for the same. She was last seen in April 2018. She had presented here to the emergency room with worsening shortness of breath, bilateral shoulder discomfort. She has had approximately 30 pound weight loss in the past 6 months or so. She has been trying to quit smoking. Chest x-ray shows no acute cardio pulmonary process. CT angiogram did reveal evidence of anterior mediastinal mass. The mass is measuring 4 x 3.3 x 3.4 located all new anteriorly to the innominate and left common carotid arteries in the substernal location to the left midline. Suspect some right hilar adenopathy as well. Within the differential is lung cancer, thymus cancer, less likely thyroid cancer or lymphoma. She is seen today in consultation on the oncology unit. She is awake and alert in no acute distress. She's currently afebrile. Maintaining O2 saturations in the 90s on 3 L/m per nasal cannula. She denies any hemoptysis. She's been hemodynamically stable. White count 6.1. Hemoglobin 13.2. Creatinine 0.61. TSH 0.996. She is currently on DuoNeb inhalations, IV Solu- Medrol. Her pain is being controlled with morphine. Patient was reevaluated today on , and basically she is about the same, continues to have intermittent episodes of cough wheezing shortness of breath, continues to have bilateral shoulder discomfort. Patient is to be scheduled for CT-guided biopsy of anterior mediastinal mass, hopefully this could be done tomorrow. Apparently she was on aspirin, and it is presently on hold. Patient remains on bronchodilators as ordered on admission. And she remains on oxygen. The patient is seen today 12/04/2017 in follow-up on the regular medical floor. She remains awake and alert in no acute distress. She does have some dyspnea on exertion. Biopsy of the anterior mediastinal mass is pending per interventional radiology. She is currently maintaining O2 saturation in low 90s on 4 L/m per nasal cannula. She's been afebrile. Slightly tachycardic. Blood pressure stable. Blood and sputum cultures reveal no growth. She is continued on DuoNeb inhalations, prednisone, empiric antibiotics in the form of Vibramycin. Objective - Vital Signs Vital signs: Vital Signs Temp 97.8 F 12/04/18 04:15 Pulse 100 12/04/18 11:23 Resp 18 12/04/18 04:15 BP 115/75 12/04/18 04:15 Pulse Ox 97 12/04/18 04:15 Intake & Output 12/03/18 12/04/18 12/04/18 18:59 06:59 18:59 Intake Total 1010 Balance 1010 Intake: Oral 1010 Other: Voiding Method Toilet Toilet Toilet # Voids 4 5 - Exam GENERAL EXAM: Frail, cachectic. Appears older than stated age. Alert, comfortable in no apparent distress. On 4 L nasal cannula HEAD: Normocephalic. EYES: Normal reaction of pupils, equal size. NOSE: Clear with pink turbinates. THROAT: No erythema or exudates. NECK: No masses, no JVD. CHEST: No chest wall deformity. LUNGS: Equal air entry with end expiratory wheeze, diminished. CVS: S1 and S2 normal with no audible murmur, regular rhythm. ABDOMEN: No hepatosplenomegaly, normal bowel sounds, no guarding or rigidity. SPINE: No scoliosis or deformity SKIN: No rashes CENTRAL NERVOUS SYSTEM: No focal deficits, tone is normal in all 4 extremities. EXTREMITIES: There is no peripheral edema. No clubbing, no cyanosis. Peripheral pulses are intact. - Labs CBC & Chem 7: 12/01/18 13:25 12/01/18 13:25 Labs: Abnormal Lab Results - Last 24 Hours (Table) 12/03/18 Range/Units 17:16 POC Glucose (mg/dL) 113 H (75-99) mg/dL Microbiology - Last 24 Hours (Table) 12/01/18 13:25 Blood Culture - Preliminary Blood No Growth after 48 hours 12/02/18 20:25 Gram Stain - Preliminary Sputum Sputum Culture - Preliminary Assessment and Plan Assessment: Impression: #1 Acute exacerbation of severe oxygen dependent, steroid dependent chronic obstructive pulmonary disease. #2 Chronic and ongoing tobacco dependence. #3 Mediastinal mass measuring 4 x 3.3 x 3.4 cm anterior to the innominate and left common carotid arteries and the substernal location to the left of midline. Suspect some right hilar adenopathy as well. #4 Anxiety/depression. #5 Osteoporosis. #6 Multiple sclerosis. #7 Hyperlipidemia. Plan: The patient was seen and evaluated by Dr. Emanuel. Fine-needle aspirate per interventional radiology of the mediastinal mass is pending. Suspect lung cancer or thymus cancer. Less likely thyroid cancer or lymphoma. She is agreeable to the plan. She is again educated regarding the importance of complete smoking cessation. Continue the current treatment plan We will continue to follow and make further recommendations based on her clinical status. I, the cosigning physician, performed a history & physical examination of the patient. Lungs sounds with bilateral end expiratory wheeze, diminished. Maintaining good O2 saturations in the 90s on 4 L/m per nasal cannula. I discussed the assessment and plan of care with my nurse practitioner, Torrie bailey. I attest to the above note as dictated by her.
[2018-12-04 12:10] LABS: Glucose,Whole Blood 115 mg/dL (75-99)
[2018-12-04 13:15] VITALS: BP 99/66; PULSE 94; TEMP 98.2
--- NOTE | 2018-12-04 14:03 | P.DS ---
Providers Date of admission: 12/01/18 16:29 Attending physician: Andre Cannon Consults: 12/01/18 16:30 Consult Physician Routine Consulting Provider: Pauline Salcedo Consult Reason/Comments: mediastinal mass Do you want consulting provider notified?: Yes 12/01/18 16:54 Consult Physician Stat Consulting Provider: Prisca Mathew Consult Reason/Comments: COPD exacerbation, mediastinal mass Do you want consulting provider notified?: Yes Primary care physician: Prisca Mathew Hospital Course: 63-year-old female was admitted for COPD exacerbation found to have mediastinal mass most probably will undergo CT-guided biopsy tomorrow. Pulmonology and carotid thoracic surgery evaluated the patient patient has significant emphysema very high risk for postoperative pneumothorax same thing was discussed with the patient. Patient evidently had an episode of shortness of breath was wheezing earlier today although when I examined patient is fairly stable no significant wheezing on exam. 12/04/2018 Hopefully patient will be able to get CT-guided biopsy today if not patient will be scheduled for outpatient CT-guided biopsy and will be discharged today. Patient was pretty status improved and patient had only has minimal wheeze will ablate the patient if she is saturating about 88% on 2 L of oxygen patient will be discharged today. PHYSICAL EXAMINATION: GENERAL: The patient is alert and oriented x3, not in any acute distress. Well developed, well nourished. HEENT: Pupils are round and equally reacting to light. EOMI. No scleral icterus. No conjunctival pallor. Normocephalic, atraumatic. No pharyngeal erythema. No thyromegaly. CARDIOVASCULAR: S1 and S2 present. No murmurs, rubs, or gallops. PULMONARY: Fairly good air entry with minimal expiratory wheezing on exam ABDOMEN: Soft, nontender, nondistended, normoactive bowel sounds. No palpable organomegaly. MUSCULOSKELETAL: No joint swelling or deformity. EXTREMITIES: No cyanosis, clubbing, or pedal edema. NEUROLOGICAL: Gross neurological examination did not reveal any focal deficits. SKIN: No rashes. ssessment and Plan Plan: -Acute on chronic hypercapnic respiratory failure secondary to COPD exacerbation -Mediastinal mass CT-guided biopsy today or as an outpatient -Continued nicotine use: Counseling was provided -History of multiple sclerosis no new weakness at this time -Osteoporosis probably from steroids -Hyperlipidemia -Chronic sinus tachycardia secondary to chronic COPD emphysema metoprolol dose was changed to 25 bid. Patient Condition at Discharge: Serious Plan - Discharge Summary Discharge Rx Participant: Yes New Discharge Prescriptions: New Doxycycline Monohydrate [Monodox] 100 mg PO BID 3 Days #6 cap guaiFENesin [Mucinex] 1,200 mg PO Q12HR #14 tablet.er predniSONE 10 mg PO DAILY #30 tab Tiotropium [place] [Spiriva] 1 cap INHALATION DAILY #1 device Budesonide-Formot 160-4.5 Mcg [Symbicort 160-4.5 Mcg Inhaler] 2 puff INHALATION BID #1 inhaler Continue Nitroglycerin Sl Tabs [Nitrostat] 0.4 mg SL DIRECTED rOPINIRole HCL 0.5 mg PO DAILY Albuterol Nebulized (Conc) [Ventolin Nebulized (Conc)] 2.5 mg INHALATION RT- QID Changed Metoprolol Tartrate [Lopressor] 25 mg PO BID #0 Discontinued predniSONE 5 mg PO BID Discharge Medication List Albuterol Nebulized (Conc) [Ventolin Nebulized (Conc)] 2.5 mg INHALATION RT-QID 12/01/18 [History] Nitroglycerin Sl Tabs [Nitrostat] 0.4 mg SL DIRECTED 12/01/18 [History] rOPINIRole HCL 0.5 mg PO DAILY 12/01/18 [History] Budesonide-Formot 160-4.5 Mcg [Symbicort 160-4.5 Mcg Inhaler] 2 puff INHALATION BID #1 inhaler 12/04/18 [Rx] Doxycycline Monohydrate [Monodox] 100 mg PO BID 3 Days #6 cap 12/04/18 [Rx] Metoprolol Tartrate [Lopressor] 25 mg PO BID #0 12/04/18 [Rx] Tiotropium [place] [Spiriva] 1 cap INHALATION DAILY #1 device 12/04/18 [Rx] guaiFENesin [Mucinex] 1,200 mg PO Q12HR #14 tablet.er 12/04/18 [Rx] predniSONE 10 mg PO DAILY #30 tab 12/04/18 [Rx] Follow up Appointment(s)/Referral(s): Prisca Mathew MD [Primary Care Provider] - 3 Days
== END 2018-12-04 16:52 | disposition home or self-care (01) | DRG 190 ==
LOC: EC 12:39 → 3NMEDONC 16:29
PROVIDERS: ADMIT Internal Medicine; ATTEND Internal Medicine
DX: J44.1 Chronic obstructive pulmonary disease with (acute) exacerbation (principal); J96.21 Acute and chronic respiratory failure with hypoxia; J96.22 Acute and chronic respiratory failure with hypercapnia; C38.3 Malignant neoplasm of mediastinum, part unspecified; M81.0 Age-related osteoporosis without current pathological fracture; G35 Multiple sclerosis; R59.0 Localized enlarged lymph nodes; E78.5 Hyperlipidemia, unspecified; Z71.6 Tobacco abuse counseling; F17.210 Nicotine dependence, cigarettes, uncomplicated; F32.9 Major depressive disorder, single episode, unspecified; F41.9 Anxiety disorder, unspecified; Z79.52 Long term (current) use of systemic steroids; Z79.899 Other long term (current) drug therapy; Z80.0 Family history of malignant neoplasm of digestive organs; Z82.49 Family history of ischemic heart disease and other diseases of the circulatory system; Z82.5 Family history of asthma and other chronic lower respiratory diseases; Z90.710 Acquired absence of both cervix and uterus; Z99.81 Dependence on supplemental oxygen; R63.4 Abnormal weight loss; M25.512 Pain in left shoulder; M25.511 Pain in right shoulder; Z88.0 Allergy status to penicillin; Z91.040 Latex allergy status; Z68.22 Body mass index [BMI] 22.0-22.9, adult; R00.0 Tachycardia, unspecified
CPT/HCPCS: 36415; 71045; 71275; 80053; 82550; 83036; 83880; 84443; 84484; 85025; 85379; 85610; 85730; 87040; 87070; 87205; 93005; 94640; 94760; 96361; 96374; 96375; 99285